=== PATIENT | female | born 1935 | race Hispanic/Latino ===

== ENCOUNTER 2021-05-17 16:51 | Emergency (ER) | payer MEDICARE ==
[~2021-05-17] VITALS: Ht 154.9 cm; Wt 70.3 kg
[2021-05-17 18:11] VITALS: BP 110/60
[2021-05-17] MEDS ORDERED: LACTATED RINGERS 1000ML 1,000 ML IV ONE (19:00)
[2021-05-17 19:25] LABS: BASOPHILS % (AUTO) 0.7 % (0.0-5.0); EOSINOPHILS % (AUTO) 2.2 % (0.0-8.0); HEMATOCRIT 43.9 % (42-54); LYMPHOCYTES % (AUTO) 33.6 % (21.0-51.0); MEAN CORPUSCULAR HEMOGLOBIN 30.4 pg (27.0-33.0); MEAN CORPUSCULAR HGB CONC 33.3 g/dL (32.0-36.0); MEAN CORPUSCULAR VOLUME 91.5 fL (79-99); MONOCYTES % (AUTO) 8.4 % (3.0-13.0); PLATELET COUNT (AUTO) 204 K/uL (130-400); RED CELL DISTRIBUTION WIDTH 13.7 % (11.0-15.5); WHITE BLOOD COUNT (AUTO) 6.9 K/uL (4.8-10.8)
[2021-05-17 19:35] LABS: APPEARANCE,URINE Cloudy (CLEAR); BILIRUBIN,URINE Negative (NEGATIVE); COLOR,URINE Yellow (YELLOW); GLUCOSE, URINE (UA) Negative (NEGATIVE); KETONES,URINE Negative (NEGATIVE); LEUKOCYTE ESTERASE ,URINE Large (NEGATIVE); NITRATE,URINE Negative (NEGATIVE); OCCULT BLOOD,URINE Trace (NEGATIVE); PH,URINE 6.5 (5.0-8.0); PROTEIN,URINE Negative (NEGATIVE)
[2021-05-17 19:46] LABS: ALBUMIN 3.3 g/dL (3.5-5.0); BILIRUBIN,TOTAL 0.4 mg/dL (0.2-1.0); CREATININE 0.6 mg/dL (0.5-1.5); POTASSIUM 5.1 mmol/L (3.5-5.1); TOTAL PROTEIN, SERUM 7.1 g/dL (6.0-8.3)
[2021-05-17 19:54] LABS: B-TYPE NATRIURETIC PEPTIDE 15 pg/mL (0-100)
[2021-05-17 19:55] LABS: BACTERIA,URINE Moderate /HPF (None Seen); SQUAMOUS EPITHELIAL CELL,UR Rare /HPF (0-2)
[2021-05-17] MEDS ORDERED: CEFTRIAXONE 1G VIAL IVP STA (20:38)
[2021-05-17] MEDS ORDERED: KETOROLAC 15MG/ML VIAL (15MG/ML) IV STA (20:44)
[2021-05-17] MEDS ORDERED: LEVO500T89 PO (21:03)
[2021-05-17 21:37] VITALS: BP 149/71
== END 2021-05-17 21:47 | disposition home or self-care (01) ==
LOC: EDH 16:51 → EDSEX 16:51 → EDH 21:47
DX: N39.0 Urinary tract infection, site not specified (principal); R53.1 Weakness; Z20.822 Contact with and (suspected) exposure to COVID-19; E11.9 Type 2 diabetes mellitus without complications; I10 Essential (primary) hypertension; F03.90 Unspecified dementia, unspecified severity, without behavioral disturbance, psychotic disturbance, mood disturbance, and anxiety; E86.0 Dehydration
CPT/HCPCS: 36415; 70450; 71045; 80053; 81001; 82150; 82550; 83605; 83690; 83880; 84145; 84484; 85025; 87040 ×2; 87077; 87088; 87186; 87635; 87804 ×2; 87880; 93005; 96361; 96374; 96375; 99285; C9803; J0696; J1885; J7120